=== PATIENT | female | born 1955 | race African-American/Black ===

== ENCOUNTER 2017-08-22 13:29 | Inpatient (IN) | payer OTHER ==
[2017-08-22 15:26] VITALS: BMI 43.7
--- NOTE | 2017-08-22 17:06 | HP ---
COWS - Scale Resting Pulse: 1= HI 81-100 Sweatin= Chills/Flushing Restless Observation: 3= Extraneous Movement Pupil Size: 0= Normal to Room Light Bone or Joint Aches: 2= Severe Diffuse Aches Runny Nose/ Eye Tearin= Runny Nose/Eyes GI Upset > 30mins: 1= Stomach Cramp Tremor Observation: 2= Slight Tremor Visible Yawning Observation: 1= 1-2x During Session Anxiety or Irritability: 2=Irritable/Anxious Goose Flesh Skin: 0=Smooth Skin COWS Score: 15 Admission [facility] - [facility] Chief Complaint: withdrawal sx Allergies/Adverse Reactions: Allergies Allergy/AdvReac Type Severity Reaction Status Date / Time No Known Allergies Allergy Verified 08/22/17 16:51 History of Present Illness: 61 years old female with long history of heroin nicotine cocaine dependence has hypertension, blood clots = legs, positive ppd, and depression is admitted to detox Exam Limitations: No Limitations - Ebola screening Have you traveled outside of the country in the last 21 days: No Have you had contact with anyone from an Ebola affected area: No Have you been sick,other than usual withdrawal symptoms: No Do you have a fever: No - Review of Systems Constitutional: Changes in sleep, Weight Stable EENT: reports: Blurred Vision (eye glasses), Dental Problems (multiple teeth missing) Respiratory: reports: No Symptoms reported Cardiac: reports: No Symptoms Reported GI: reports: Poor Fluid Intake, Indigestion, Abdominal cramping : reports: No Symptoms Reported Musculoskeletal: reports: Back Pain, Joint Pain, Muscle Pain, Muscle Weakness ( legs), Neck Pain Integumentary: reports: Bruising (related to blood thinner medication), Change in Color (both legs + arms) Neuro: reports: Tremors Endocrine: reports: No Symptoms Reported Hematology: reports: Blood Clots (legs), Easy Bruising (blood thinner inr pending) Psychiatric: reports: Judgement Intact, Orientated x3, Anxious, Depressed Other Systems: Reviewed and Negative Patient History - Patient Medical History Hx Anemia: No Hx Asthma: No Hx Chronic Obstructive Pulmonary Disease (COPD): No Hx Cancer: No Hx Cardiac Disorders: No Hx Congestive Heart Failure: No Hx Hypertension: Yes Hx Hypercholesterolemia: No Hx Pacemaker: No HX Cerebrovascular Accident: No Hx Seizures: No Hx Dementia: No Hx Diabetes: No Hx Gastrointestinal Disorders: No Hx Liver Disease: No Hx Genitourinary Disorders: No Hx Sexually Transmitted Disorders: No Hx Renal Disease (ESRD): No Hx Thyroid Disease: No Hx Human Immunodeficiency Virus (HIV): No Hx Hepatitis C: Yes Hx Depression: Yes Hx Suicide Attempt: No Hx Bipolar Disorder: No Hx Schizophrenia: No - Patient Surgical History Past Surgical History: Yes Hx Neurologic Surgery: Yes (2002 laminectomy) Hx Cataract Extraction: No Hx Cardiac Surgery: No Hx Lung Surgery: No Hx Breast Surgery: No Hx Breast Biopsy: No Hx Abdominal Surgery: Yes (2004 HYSTERECTOMY) Hx Appendectomy: No Hx Cholecystectomy: No Hx Genitourinary Surgery: No Hx Section: No Hx Orthopedic Surgery: Yes (LAMINECTOMY 2002) Hx Hysterectomy: Yes (1999) Other Surgical History: SKIN GRAPH 1984 Anesthesia Reaction: No - PPD History Previous Implant?: Yes Documented Results: Positive w/o proof Implanted On Prior [facility] Admission?: No PPD to be Administered?: No - Reproductive History Patient is a Female of Child Bearing Age (11 -55 yrs old): No Patient : No - Smoking Cessation Smoking history: Current every day smoker Have you smoked in the past 12 months: Yes Aproximately how many cigarettes per day: 10 Cigars Per Day: 0 Hx Chewing Tobacco Use: No Initiated information on smoking cessation: Yes 'Breaking Loose' booklet given: 08/22/17 - Substance & Tx. History Hx Alcohol Use: No Hx Substance Use: Yes Substance Use Type: Cocaine, Opiates Hx Substance Use Treatment: Yes (2008) - Substances Abused Heroin Route: Smoking Frequency: Daily Amount used: 15 BAGS Age of first use: 12 Date of Last Use: 08/22/17 Cocaine Route: Smoking Frequency: Daily Amount used: $60 Age of first use: 41 Date of Last Use: 08/22/17 Family Disease History - Family Disease History Family Disease History: Heart Disease: Mother (), Other: Father ( ), Mother, Brother (no brother), Sister (no sister) Other Family History: only child Admission Physical Exam S - Vital Signs Vital Signs: Vital Signs - 24 hr 08/22/17 15:24 Temperature 95.5 F L Pulse Rate 81 Respiratory 18 Rate Blood Pressure 143/110 - Physical General Appearance: Yes: Appropriately Dressed, Mild Distress, Obese, Tremorous , Irritable, Sweating, Anxious HEENTM: Yes: Hearing grossly Normal, Normal ENT Inspection, Normocephalic, Normal Voice Respiratory: Yes: Chest Non-Tender, Lungs Clear, Normal Breath Sounds, No Respiratory Distress, No Accessory Muscle Use Neck: Yes: Supple, Trachea in good position Breast: Yes: Breasts Symetrical Abdominal: Yes: Non Tender, Soft, Increased Bowel Sounds Genitourinary: Yes: Within Normal Limits Back: Yes: Normal Inspection, Surgical Scar Musculoskeletal: Yes: Gait Steady (walker), Back pain, Joint swelling (legs) Extremities: Yes: Non-Tender, Tremors Neurological: Yes: Fully Oriented, Alert, Motor Strength 5/5, Normal Response, Depressed Affect Integumentary: Yes: Warm, Track Guzman (last iv heroin 1988) Lymphatic: Yes: Within Normal Limits - Diagnostic (1) Opioid dependence with withdrawal Current Visit: Yes Status: Acute (2) Cocaine dependence, uncomplicated Current Visit: Yes Status: Chronic (3) Nicotine dependence Current Visit: Yes Status: Acute Qualifiers: Nicotine product type: cigarettes Substance use status: in withdrawal Qualified Code(s): F17.213 - Nicotine dependence, cigarettes, with withdrawal (4) Positive PPD, treated Current Visit: Yes Status: Resolved (5) Hypertension Current Visit: Yes Status: Chronic Qualifiers: Hypertension type: essential hypertension Qualified Code(s): I10 - Essential (primary) hypertension (6) Embolism involving vascular device Current Visit: Yes Status: Chronic Qualifiers: Encounter type: sequela Qualified Code(s): T82.818S - 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, implants and grafts, sequela Comment: last dose coumadin 08/22/17 patient has her own medication inr pending (7) GERD (gastroesophageal reflux disease) Current Visit: Yes Status: Chronic Qualifiers: Esophagitis presence: without esophagitis Qualified Code(s): K21.9 - Gastro -esophageal reflux disease without esophagitis (8) Hepatitis C Current Visit: Yes Status: Chronic Qualifiers: Viral hepatitis chronicity: unspecified Hepatic coma status: without hepatic coma Qualified Code(s): B19.20 - Unspecified viral hepatitis C without hepatic coma (9) Depression (emotion) Current Visit: Yes Status: Suspected Qualifiers: Depression Type: dysthymia Qualified Code(s): F34.1 - Dysthymic disorder Cleared for Admission [facility] - Detox or Rehab [facility] Level of Care: Medically Managed Detox Regimen/Protocol: Methadone BHS Breath Alcohol Content Breath Alcohol Content: 0 Urine Pregancy Test - Result Urine Test Results: Negative- NO Line Present Urine Drug Screen - Results Drug Screen Negative: No Urine Drug Screen Results: MARCO-Cocaine, OPI-Opiates, BZO-Benzodiazepines, MTD- Methadone
[2017-08-22] MEDS ORDERED: MAGNESIUM CITRATE 300 ML BOTTLE PO PRN (17:18)
[2017-08-22] MEDS ORDERED: ACETAMINOPHEN 325 MG TABLET (FP) PO PRN (17:18)
[2017-08-22] MEDS ORDERED: MAGNESIUM HYDROX 2400MG/30ML ORAL SUSPENSION 30 ML CUP PO PRN (17:18)
[2017-08-22] MEDS ORDERED: LOPERAMIDE HCL 2 MG CAPSULE PO PRN (17:18)
[2017-08-22] MEDS ORDERED: guaiFENesin/D-METHORPHAN HB 10 ML UNIT-DOSE CUPS PO PRN (17:18)
[2017-08-22] MEDS ORDERED: MAG HYDROX/AL HYDROX/SIMETH 30 ML UNIT-DOSE CUP PO PRN (17:18)
[2017-08-22] MEDS ORDERED: MENTHOL/PHENOL 1 EACH UD MM PRN (17:18)
[2017-08-22] MEDS ORDERED: P-EPHED 60MG/TRIPROLIDI 2.5MG TABLET PO PRN (17:18)
[2017-08-22] MEDS ORDERED: NICOTINE POLACRILEX 2 MG GUM BUC PRN (17:18)
[2017-08-22] MEDS ORDERED: METHADONE HCL 10 MG TABLET (FOR DETOX USE ONLY) PO ONE ×2 (18:00→23:00)
[2017-08-22] MEDS: diazePAM 5 MG TABLET PO PRN ×2 (18:40→22:49)
[2017-08-22] MEDS: BACITRACIN 0.9 GM PACKET TP SCH (18:41)
[2017-08-22] MEDS: THIAMINE HCL 100 MG TABLET (FP) PO SCH (22:49)
[2017-08-22] MEDS: RANITIDINE HCL 150 MG TABLET (FP) PO SCH (22:49)
[2017-08-23] MEDS: BACITRACIN 0.9 GM PACKET TP SCH ×4 (00:10→22:07)
[2017-08-23 02:19] LABS: URINE APPEARANCE SLCLOUDY; URINE BILIRUBIN NEGATIVE (NEGATIVE); URINE BLOOD NEGATIVE (NEGATIVE); URINE COLOR AMBER; URINE GLUCOSE (UA) NEGATIVE (NEGATIVE); URINE KETONE TRACE (NEGATIVE); URINE LEUK ESTERASE NEGATIVE (NEGATIVE); URINE NITRITE NEGATIVE (NEGATIVE); URINE PROTEIN NEGATIVE (NEGATIVE)
[2017-08-23] MEDS: diazePAM 5 MG TABLET PO PRN ×4 (02:56→20:27)
[2017-08-23 09:45] LABS: HEMATOCRIT 41.5 % (32.4-45.2); HEMOGLOBIN 13.4 GM/dL (10.7-15.3); MCH 30.7 pg (25.7-33.7); MCHC 32.2 g/dl (32.0-36.0); MEAN CELL VOLUME 95.3 fl (80-96); MEAN PLT VOLUME 8.5 fl (7.5-11.1); PLATELET COUNT 237 K/MM3 (134-434); RBC 4.36 M/mm3 (3.60-5.2); RDW 14.7 % (11.6-15.6); WHITE BLOOD COUNT 6.1 K/mm3 (4.0-10.0)
[2017-08-23] MEDS ORDERED: METHADONE HCL 10 MG TABLET (FOR DETOX USE ONLY) PO ONE (10:00)
[2017-08-23 10:03] LABS: CHLORIDE 108 mmol/L (98-107); POTASSIUM 4.1 mmol/L (3.5-5.1); SODIUM 138 mmol/L (136-145)
[2017-08-23 10:13] LABS: INR 2.65 (0.82-1.09)
[2017-08-23 10:21] LABS: ALBUMIN 2.8 g/dl (3.4-5.0); ALK PHOS 101 U/L (45-117); ANION GAP 8 (8-16); BILIRUBIN,TOTAL 0.4 mg/dL (0.2-1.0); BLOOD UREA NITROGEN 12 mg/dL (7-18); CALCIUM 7.8 mg/dL (8.5-10.1); CO2 22 mmol/L (21-32); CREATININE 0.9 mg/dL (0.55-1.02); GLUCOSE,RANDOM 143 mg/dL (74-106); SGOT/AST 47 U/L (15-37); SGPT/ALT 39 U/L (12-78); TOT PROT 8.2 g/dl (6.4-8.2)
[2017-08-23] MEDS: RANITIDINE HCL 150 MG TABLET (FP) PO SCH ×2 (10:44→22:07)
[2017-08-23] MEDS: PRENATAL VITAMINS W/ FOLIC ACID TABLET (FP) PO SCH (10:44)
[2017-08-23] MEDS: PATIENT'S OWN MEDICATION (NON-FORMULARY) (Amlodipine Besylate [Amlodipine Besylate] 10 MG) PO SCH (10:45)
[2017-08-23] MEDS: PATIENT'S OWN MEDICATION (NON-FORMULARY) (Lisinopril [Zestril] 40 MG) PO SCH (10:45)
[2017-08-23] MEDS: NICOTINE 14 MG/24 HOURS TOPICAL PATCH TD SCH (10:46)
[2017-08-23] MEDS ORDERED: hydrOXYzine HCL 25 MG TABLET (FP) PO PRN (11:54)
[2017-08-23] MEDS ORDERED: FLU VACCINE QUAD 60 MCG/0.5 ML (MDV 17-18) IM ONE (12:00)
--- NOTE | 2017-08-23 12:41 | CONSULT ---
[facility] Psychiatric Consult - Data Date of interview: 08/23/17 Admission source: [facility] Identifying data: Pt. is a 61 year old woman, single, mother of one and on disability. This is patient's [facility]. Pt. admitted to for alcohol, heroin, and crack dependence. Substance Abuse History: Heroin- First used: 12 Frequency: Daily Amount:1 1/ 2 bundle. Last used: 08/22/2017. Crack: First used: 43 Frequency: daily Amount: $60 Last used: 08/21. Cigarette: Current everyday smoker . 1/2 pack per day. Alcohol- Reports rarely drinking. 22oz beer Medical History: Hypertension, Hep C, Laminectomy (2002), Skin graph 2004 Psychiatric History: Pt. denies h/o psychiatric hospitalization. States she nearly had a suicide attempt at the age of 13 by planning on overdosing on her mother's medication but stated there was not enough pills so decided not to act upon her suicidal ideation. Pt. states she has not seen a psychiatrist in over two years. States she has been prescribed prozac, zoloft and trazodone but did not like how the medications made her feel. Pt. currently reports insomnia and is asking for a sleep aid. Ambien to be ordered. Physical/Sexual Abuse/Trauma History: Denies. Mental Status Exam - Mental Status Exam Alert and Oriented to: Time, Place, Person Cognitive Function: Good Patient Appearance: Unkempt Mood: Sad Affect: Mood Congruent Patient Behavior: Crying (Pt. sad about her current situation but stated she felt better after our conversation because someone was able to listen to her. ) , Cooperative Speech Pattern: Appropriate Voice Loudness: Normal Thought Process: Goal Oriented Thought Disorder: Not Present Hallucinations: Denies Suicidal Ideation: Denies Homicidal Ideation: Denies Insight/Judgement: Poor Sleep: Poorly Appetite: Fair Muscle strength/Tone: Normal Gait/Station: Normal Psychiatric Findings - Problem List ([place] 1, 2,3) (1) Opioid dependence with withdrawal Current Visit: Yes Status: Acute (2) Insomnia Current Visit: Yes Status: Acute (3) Cocaine dependence, uncomplicated Current Visit: Yes Status: Chronic (4) Nicotine dependence Current Visit: Yes Status: Chronic Qualifiers: Nicotine product type: cigarettes Substance use status: in withdrawal Qualified Code(s): F17.213 - Nicotine dependence, cigarettes, with withdrawal (5) Substance induced mood disorder Current Visit: No Status: Suspected - Initial Treatment Plan Initial Treatment Plan: Psychoeducation provided. Detoxification in progress. Ambien 5mg qhs PRN to be ordered for insomnia. Pt. reports favorable effect from previously taking ambien. Benefits and side effects (sleep walking) discussed. Verbal consent given. Will continue to monitor.
--- NOTE | 2017-08-23 16:43 | PN ---
BHS COWS - Scale Resting Pulse: 1= RI 81-100 Sweatin= Chills/Flushing Restless Observation: 3= Extraneous Movement Pupil Size: 0= Normal to Room Light Bone or Joint Aches: 2= Severe Diffuse Aches Runny Nose/ Eye Tearin= Runny Nose/Eyes GI Upset > 30mins: 1= Stomach Cramp Tremor Observation of Outstretched Hands: 2= Slight Tremor Visible Yawning Observation: 1= 1-2x During Session Anxiety or Irritability: 2=Irritable/Anxious Goose Flesh Skin: 0=Smooth Skin COWS Score: 15 BHS Progress Note (SOAP) Subjective: Chills, interrupted sleep, muscle spasm, tingling, anxious Objective: 08/23/17 16:40 Last Vital Signs Temp Pulse Resp BP Pulse Ox 97.9 F 82 18 115/73 08/23/17 14:57 08/23/17 14:57 08/23/17 14:57 08/23/17 14:57 Laboratory Tests 08/22/17 08/23/17 08/23/17 23:45 07:30 07:30 WBC 6.1 RBC 4.36 Hgb 13.4 Hct 41.5 MCV 95.3 MCH 30.7 MCHC 32.2 RDW 14.7 Plt Count 237 MPV 8.5 PT with INR INR Sodium 138 Potassium 4.1 Chloride 108 H Carbon Dioxide 22 Anion Gap 8 BUN 12 Creatinine 0.9 Creat Clearance w eGFR > 60 Random Glucose 143 H Calcium 7.8 L Total Bilirubin 0.4 AST 47 H ALT 39 Alkaline Phosphatase 101 Total Protein 8.2 Albumin 2.8 L Urine Color Amy Urine Appearance Slcloudy Urine pH 5.0 Ur Specific [place] 1.031 Urine Protein Negative Urine Glucose (UA) Negative Urine Ketones Trace H Urine Blood Negative Urine Nitrite Negative Urine Bilirubin Negative Urine Urobilinogen 2.0 H RPR Titer 08/23/17 08/23/17 07:30 07:30 WBC RBC Hgb Hct MCV MCH MCHC RDW Plt Count MPV PT with INR 30.00 H INR 2.65 H Sodium Potassium Chloride Carbon Dioxide Anion Gap BUN Creatinine Creat Clearance w eGFR Random Glucose Calcium Total Bilirubin AST ALT Alkaline Phosphatase Total Protein Albumin Urine Color Urine Appearance Urine pH Ur Specific [place] Urine Protein Urine Glucose (UA) Urine Ketones Urine Blood Urine Nitrite Urine Bilirubin Urine Urobilinogen RPR Titer Nonreactive Labs noted: serum glucose 143 Assessment: 08/23/17 16:41 Withdrawal symptoms Noted with hyperglycemia Plan: Continue detox Encouraged to drink lots of water for hydration Hyperglycemia: repeat fasting glucose in AM, send HbA1c, start finger stick ac meal with sliding scale insulin coverage, consider initiating oral antidiabetic medication if warranted
[2017-08-23] MEDS: INSULIN SLIDING SCALE (NOVOLOG) 1 VIAL SQ SCH (17:17)
[2017-08-23] MEDS: WARFARIN SODIUM 7.5 MG PO SCH (17:43)
[2017-08-23] MEDS ORDERED: ZOLPIDEM TARTRATE 5 MG TABLET PO PRN (22:00)
[2017-08-23] MEDS: THIAMINE HCL 100 MG TABLET (FP) PO SCH (22:07)
[2017-08-24] MEDS: diazePAM 5 MG TABLET PO PRN ×4 (01:17→15:19)
[2017-08-24] MEDS: BACITRACIN 0.9 GM PACKET TP SCH ×3 (06:05→22:07)
[2017-08-24] MEDS: INSULIN SLIDING SCALE (NOVOLOG) 1 VIAL SQ SCH ×3 (06:06→17:44)
[2017-08-24] MEDS ORDERED: METHADONE HCL 5 MG TABLET (FOR DETOX USE ONLY) PO ONE (10:00)
[2017-08-24] MEDS: PRENATAL VITAMINS W/ FOLIC ACID TABLET (FP) PO SCH (10:58)
[2017-08-24] MEDS: RANITIDINE HCL 150 MG TABLET (FP) PO SCH ×2 (10:58→22:07)
[2017-08-24] MEDS: PATIENT'S OWN MEDICATION (NON-FORMULARY) (Lisinopril [Zestril] 40 MG) PO SCH (10:59)
[2017-08-24] MEDS: PATIENT'S OWN MEDICATION (NON-FORMULARY) (Amlodipine Besylate [Amlodipine Besylate] 10 MG) PO SCH (10:59)
[2017-08-24] MEDS: NICOTINE 14 MG/24 HOURS TOPICAL PATCH TD SCH (11:00)
--- NOTE | 2017-08-24 11:32 | EKG ---
Test Reason : Blood Pressure : / mmHG Vent. Rate : 067 BPM Atrial Rate : 067 BPM P-R Int : 172 ms QRS Dur : 096 ms QT Int : 394 ms P-R-T Axes : 039 036 022 degrees QTc Int : 416 ms NORMAL SINUS RHYTHM NORMAL ECG NO PREVIOUS ECGS AVAILABLE BASELINE ARTIFACT Confirmed by CICI BANG, MONALISA ([id number]) on 08/24/2017 11:32:00 AM Referred By: AMELIA VERDIN Confirmed By:MONALISA BOLANOS MD
--- NOTE | 2017-08-24 12:31 | PN ---
BHS COWS - Scale Resting Pulse: 0= SD 80 or Below Sweatin=Flushed/Facial Moisture Restless Observation: 1= Difficult to Sit Still Pupil Size: 0= Normal to Room Light Bone or Joint Aches: 2= Severe Diffuse Aches Runny Nose/ Eye Tearin= Runny Nose/Eyes GI Upset > 30mins: 2= Nausea/Diarrhea Tremor Observation of Outstretched Hands: 2= Slight Tremor Visible Yawning Observation: 1= 1-2x During Session Anxiety or Irritability: 2=Irritable/Anxious Goose Flesh Skin: 0=Smooth Skin COWS Score: 14 BHS Progress Note (SOAP) Subjective: Restless,agitated,sweating,anxiety,tremors,interrupted sleep. Pt. is refusing BKM tid Objective: 08/24/17 12:26 Vital Signs 08/24/17 08/24/17 06:00 10:00 Temperature 98.1 F 98.1 F Pulse Rate 77 75 Respiratory 18 20 Rate Blood Pressure 102/80 106/69 Laboratory Tests 08/22/17 08/23/17 08/23/17 23:45 07:30 07:30 WBC 6.1 RBC 4.36 Hgb 13.4 Hct 41.5 MCV 95.3 MCH 30.7 MCHC 32.2 RDW 14.7 Plt Count 237 MPV 8.5 PT with INR INR Sodium 138 Potassium 4.1 Chloride 108 H Carbon Dioxide 22 Anion Gap 8 BUN 12 Creatinine 0.9 Creat Clearance w eGFR > 60 POC Glucometer Random Glucose 143 H Fasting Glucose Hemoglobin A1c % Calcium 7.8 L Total Bilirubin 0.4 AST 47 H ALT 39 Alkaline Phosphatase 101 Total Protein 8.2 Albumin 2.8 L Urine Color Amy Urine Appearance Slcloudy Urine pH 5.0 Ur Specific [place] 1.031 Urine Protein Negative Urine Glucose (UA) Negative Urine Ketones Trace H Urine Blood Negative Urine Nitrite Negative Urine Bilirubin Negative Urine Urobilinogen 2.0 H Ur Leukocyte Esterase Negative RPR Titer 08/23/17 08/23/17 08/23/17 07:30 07:30 17:06 WBC RBC Hgb Hct MCV MCH MCHC RDW Plt Count MPV PT with INR 30.00 H INR 2.65 H Sodium Potassium Chloride Carbon Dioxide Anion Gap BUN Creatinine Creat Clearance w eGFR POC Glucometer 76 Random Glucose Fasting Glucose Hemoglobin A1c % Calcium Total Bilirubin AST ALT Alkaline Phosphatase Total Protein Albumin Urine Color Urine Appearance Urine pH Ur Specific [place] Urine Protein Urine Glucose (UA) Urine Ketones Urine Blood Urine Nitrite Urine Bilirubin Urine Urobilinogen Ur Leukocyte Esterase RPR Titer Nonreactive 08/24/17 08/24/17 08/24/17 06:03 08:00 08:00 WBC RBC Hgb Hct MCV MCH MCHC RDW Plt Count MPV PT with INR INR Sodium Potassium Chloride Carbon Dioxide Anion Gap BUN Creatinine Creat Clearance w eGFR POC Glucometer 95 Random Glucose Fasting Glucose 129 H Hemoglobin A1c % 6.4 H Calcium Total Bilirubin AST ALT Alkaline Phosphatase Total Protein Albumin Urine Color Urine Appearance Urine pH Ur Specific [place] Urine Protein Urine Glucose (UA) Urine Ketones Urine Blood Urine Nitrite Urine Bilirubin Urine Urobilinogen Ur Leukocyte Esterase RPR Titer labs noted, pt. knows she has hyperglycemia, pre-diabetic condition. Assessment: 08/24/17 12:31 Withdrawal sx. Plan: continue detox
[2017-08-24] MEDS: WARFARIN SODIUM 7.5 MG PO SCH (18:02)
[2017-08-24] MEDS: THIAMINE HCL 100 MG TABLET (FP) PO SCH (22:07)
[2017-08-24] MEDS: ZOLPIDEM TARTRATE 10 MG TABLET (PARK CARE ONLY) PO PRN (22:09)
[2017-08-25] MEDS: diazePAM 5 MG TABLET PO PRN ×3 (02:57→13:43)
[2017-08-25] MEDS: BACITRACIN 0.9 GM PACKET TP SCH ×3 (07:11→22:14)
[2017-08-25] MEDS: INSULIN SLIDING SCALE (NOVOLOG) 1 VIAL SQ SCH ×2 (07:11→16:58)
[2017-08-25] MEDS ORDERED: METHADONE HCL 5 MG TABLET (FOR DETOX USE ONLY) PO ONE (10:00)
[2017-08-25] MEDS: PRENATAL VITAMINS W/ FOLIC ACID TABLET (FP) PO SCH (10:42)
[2017-08-25] MEDS: RANITIDINE HCL 150 MG TABLET (FP) PO SCH ×2 (10:43→22:15)
[2017-08-25] MEDS: PATIENT'S OWN MEDICATION (NON-FORMULARY) (Lisinopril [Zestril] 40 MG) PO SCH (10:43)
[2017-08-25] MEDS: NICOTINE 14 MG/24 HOURS TOPICAL PATCH TD SCH (10:43)
[2017-08-25] MEDS: PATIENT'S OWN MEDICATION (NON-FORMULARY) (Amlodipine Besylate [Amlodipine Besylate] 10 MG) PO SCH (10:43)
--- NOTE | 2017-08-25 12:04 | PN ---
BHS Progress Note (SOAP) Subjective: withdrawal sx Objective: 08/25/17 12:02 Vital Signs Temperature 97.9 F 08/25/17 10:00 Pulse Rate 92 H 08/25/17 10:00 Respiratory Rate 18 08/25/17 10:00 Blood Pressure 125/75 08/25/17 10:00 O2 Sat by Pulse Oximetry (%) Laboratory Last Values WBC 6.1 K/mm3 (4.0-10.0) 08/23/17 07:30 RBC 4.36 M/mm3 (3.60-5.2) 08/23/17 07:30 Hgb 13.4 GM/dL (10.7-15.3) 08/23/17 07:30 Hct 41.5 % (32.4-45.2) 08/23/17 07:30 MCV 95.3 fl (80-96) 08/23/17 07:30 MCH 30.7 pg (25.7-33.7) 08/23/17 07:30 MCHC 32.2 g/dl (32.0-36.0) 08/23/17 07:30 RDW 14.7 % (11.6-15.6) 08/23/17 07:30 Plt Count 237 K/MM3 (134-434) 08/23/17 07:30 MPV 8.5 fl (7.5-11.1) 08/23/17 07:30 PT with INR 30.00 SEC (9.98-11.88) H 08/23/17 07:30 INR 2.65 (0.82-1.09) H 08/23/17 07:30 Sodium 138 mmol/L (136-145) 08/23/17 07:30 Potassium 4.1 mmol/L (3.5-5.1) 08/23/17 07:30 Chloride 108 mmol/L (98-107) H 08/23/17 07:30 Carbon Dioxide 22 mmol/L (21-32) 08/23/17 07:30 Anion Gap 8 (8-16) 08/23/17 07:30 BUN 12 mg/dL (7-18) 08/23/17 07:30 Creatinine 0.9 mg/dL (0.55-1.02) 08/23/17 07:30 Creat Clearance w eGFR > 60 (>60) 08/23/17 07:30 POC Glucometer 110 UNITS (80-120) 08/24/17 16:44 Random Glucose 143 mg/dL (74-106) H 08/23/17 07:30 Fasting Glucose 129 mg/dL (70-105) H 08/24/17 08:00 Hemoglobin A1c % 6.4 % (4.8-6.0) H 08/24/17 08:00 Calcium 7.8 mg/dL (8.5-10.1) L 08/23/17 07:30 Total Bilirubin 0.4 mg/dL (0.2-1.0) 08/23/17 07:30 AST 47 U/L (15-37) H 08/23/17 07:30 ALT 39 U/L (12-78) 08/23/17 07:30 Alkaline Phosphatase 101 U/L (45-117) 08/23/17 07:30 Total Protein 8.2 g/dl (6.4-8.2) 08/23/17 07:30 Albumin 2.8 g/dl (3.4-5.0) L 08/23/17 07:30 Urine Color Amy 08/22/17 23:45 Urine Appearance Slcloudy 08/22/17 23:45 Urine pH 5.0 (5.0-8.0) 08/22/17 23:45 Ur Specific [place] 1.031 (1.001-1.035) 08/22/17 23:45 Urine Protein Negative (NEGATIVE) 08/22/17 23:45 Urine Glucose (UA) Negative (NEGATIVE) 08/22/17 23:45 Urine Ketones Trace (NEGATIVE) H 08/22/17 23:45 Urine Blood Negative (NEGATIVE) 08/22/17 23:45 Urine Nitrite Negative (NEGATIVE) 08/22/17 23:45 Urine Bilirubin Negative (NEGATIVE) 08/22/17 23:45 Urine Urobilinogen 2.0 mg/dL (0.2-1.0) H 08/22/17 23:45 Ur Leukocyte Esterase Negative (NEGATIVE) 08/22/17 23:45 RPR Titer Nonreactive (NONREACTIVE) 08/23/17 07:30 labs noted Assessment: 08/25/17 12:03 withdrawal sx No acute distress noted Plan: continue detox [place]
[2017-08-25] MEDS: WARFARIN SODIUM 7.5 MG PO SCH (17:34)
[2017-08-25] MEDS: ZOLPIDEM TARTRATE 10 MG TABLET (PARK CARE ONLY) PO PRN (22:14)
[2017-08-25] MEDS: THIAMINE HCL 100 MG TABLET (FP) PO SCH (22:44)
[2017-08-26] MEDS: BACITRACIN 0.9 GM PACKET TP SCH ×3 (05:44→22:43)
[2017-08-26] MEDS: INSULIN SLIDING SCALE (NOVOLOG) 1 VIAL SQ SCH ×2 (07:32→16:44)
[2017-08-26] MEDS ORDERED: METHADONE HCL 10 MG TABLET (FOR DETOX USE ONLY) PO ONE (10:00)
[2017-08-26] MEDS: PRENATAL VITAMINS W/ FOLIC ACID TABLET (FP) PO SCH (10:46)
[2017-08-26] MEDS: RANITIDINE HCL 150 MG TABLET (FP) PO SCH ×2 (10:46→22:44)
[2017-08-26] MEDS: PATIENT'S OWN MEDICATION (NON-FORMULARY) (Lisinopril [Zestril] 40 MG) PO SCH (10:46)
[2017-08-26] MEDS: PATIENT'S OWN MEDICATION (NON-FORMULARY) (Amlodipine Besylate [Amlodipine Besylate] 10 MG) PO SCH (10:47)
[2017-08-26] MEDS: NICOTINE 14 MG/24 HOURS TOPICAL PATCH TD SCH (10:49)
[2017-08-26 12:11] LABS: INR 2.06 (0.82-1.09); PROTHROMBIN TIME (PATIENT) 23.3 SEC (9.98-11.88)
--- NOTE | 2017-08-26 12:49 | PN ---
S Progress Note (SOAP) Subjective: ALERT,IRRITABLE,ANXIOUS,INTERRUPTED SLEEP,PAIN IN THE BODY Objective: 08/26/17 12:48 Vital Signs Temperature 97.9 F 08/26/17 10:00 Pulse Rate 86 08/26/17 10:00 Respiratory Rate 20 08/26/17 10:00 Blood Pressure 145/73 08/26/17 10:00 O2 Sat by Pulse Oximetry (%) 08/26/17 12:48 Abnormal Lab Results 08/26/17 07:50 PT with INR 23.30 H INR 2.06 H Assessment: 08/26/17 12:48 WITHDRAWAL SYMPTOM Plan: CONTINUE DETOX,DISCHARGE IN AM
[2017-08-26] MEDS: WARFARIN SODIUM 7.5 MG PO SCH (18:53)
[2017-08-26] MEDS ORDERED: ONDANSETRON *ODT* 4 MG TABLET SL ONE (19:59)
--- NOTE | 2017-08-26 21:35 | PN ---
[facility] Progress Note Note: c/o diarrhea, vomiting, dizziness, o alert unsteady gait, ambulating with walker, bp 97/62 ap 93, unable to tolerate oral fluid, watery stool, patient is taking coumadin 7.5 inr 2.06 a rule out gastritis P patient taking coumadin with high risk of fall ambulance was called report giving to er
[2017-08-26] MEDS: THIAMINE HCL 100 MG TABLET (FP) PO SCH (22:44)
[2017-08-26 23:13] VITALS: PULSE 93; TEMP 97.9
[2017-08-27] MEDS: ZOLPIDEM TARTRATE 10 MG TABLET (PARK CARE ONLY) PO PRN (00:49)
[2017-08-27] MEDS ORDERED: TRIMETHOBENZAMIDE HCL 200MG/2ML INJ IM ONE (05:47)
[2017-08-27] MEDS ORDERED: METHADONE HCL 5 MG TABLET (FOR DETOX USE ONLY) PO ONE (06:00)
[2017-08-27 06:01] VITALS: BP 119/62
[2017-08-27] MEDS: INSULIN SLIDING SCALE (NOVOLOG) 1 VIAL SQ SCH (07:46)
[2017-08-27] MEDS: BACITRACIN 0.9 GM PACKET TP SCH (07:46)
[2017-08-27] MEDS ORDERED: TRIMETHOBENZAMIDE HCL 300 MG CAPSULE PO ONE (09:17)
--- NOTE | 2017-08-27 09:40 | DS ---
[facility] Detox Discharge Summary Admission Date: 08/22/17 Discharge Date: 08/27/17 - History Present History: Alcohol Dependence, Cannabis Dependence - Physical Exam Results Vital Signs: Vital Signs Temperature 97.9 F 08/27/17 06:00 Pulse Rate 93 H 08/27/17 06:00 Respiratory Rate 20 08/27/17 06:00 Blood Pressure 119/62 08/27/17 06:00 O2 Sat by Pulse Oximetry (%) - Treatment Hospital Course: Detox Protocol Followed, Detoxed Safely, Responded well, Discharged Condition Good, Rehab Referral Accepted - Medication Discharge Medications: Ambulatory Orders Amlodipine Besylate 10 mg PO DAILY 08/22/17 Lisinopril [Zestril] 40 mg PO DAILY 08/22/17 Warfarin Sodium [Coumadin] 7.5 mg PO DAILY 08/22/17 - Diagnosis (1) Hyperglycemia Current Visit: Yes Status: Acute (2) Insomnia Current Visit: Yes Status: Acute (3) Opioid dependence with withdrawal Current Visit: Yes Status: Chronic (4) Cocaine dependence, uncomplicated Current Visit: Yes Status: Chronic (5) Depression (emotion) Current Visit: Yes Status: Chronic Qualifiers: Depression Type: dysthymia Qualified Code(s): F34.1 - Dysthymic disorder (6) Embolism involving vascular device Current Visit: Yes Status: Chronic Qualifiers: Encounter type: sequela Qualified Code(s): T82.818S - 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, implants and grafts, sequela (7) GERD (gastroesophageal reflux disease) Current Visit: Yes Status: Chronic Qualifiers: Esophagitis presence: without esophagitis Qualified Code(s): K21.9 - Gastro -esophageal reflux disease without esophagitis (8) Hepatitis C Current Visit: Yes Status: Chronic Qualifiers: Viral hepatitis chronicity: unspecified Hepatic coma status: without hepatic coma Qualified Code(s): B19.20 - Unspecified viral hepatitis C without hepatic coma (9) Hypertension Current Visit: Yes Status: Chronic Qualifiers: Hypertension type: essential hypertension Qualified Code(s): I10 - Essential (primary) hypertension (10) Nicotine dependence Current Visit: Yes Status: Chronic Qualifiers: Nicotine product type: cigarettes Substance use status: in withdrawal Qualified Code(s): F17.213 - Nicotine dependence, cigarettes, with withdrawal (11) Positive PPD, treated Current Visit: Yes Status: Chronic (12) Substance induced mood disorder Current Visit: No Status: Suspected - AMA Did Patient Leave Against Medical Advice: No
== END 2017-08-27 09:30 | disposition home or self-care (01) | DRG 897 ==
LOC: YASAS 13:29 → Y6N 17:45
PROVIDERS: ADMIT Internal Medicine; ATTEND Internal Medicine
PROC: HZ2ZZZZ Detoxification Services for Substance Abuse Treatment (ICD-10-PCS; principal; 2017-08-22)
DX: F19.230 Other psychoactive substance dependence with withdrawal, uncomplicated (principal); F14.20 Cocaine dependence, uncomplicated; Z68.41 Body mass index [BMI] 40.0-44.9, adult; F11.23 Opioid dependence with withdrawal; F17.213 Nicotine dependence, cigarettes, with withdrawal; F34.1 Dysthymic disorder; F19.24 Other psychoactive substance dependence with psychoactive substance-induced mood disorder; I10 Essential (primary) hypertension; G47.00 Insomnia, unspecified; T82.8 Other specified complications of cardiac and vascular prosthetic devices, implants and grafts; X58.XXXS Exposure to other specified factors, sequela; K21.9 Gastro-esophageal reflux disease without esophagitis; B19.20 Unspecified viral hepatitis C without hepatic coma; E66.9 Obesity, unspecified; R76.11 Nonspecific reaction to tuberculin skin test without active tuberculosis; R73.9 Hyperglycemia, unspecified; R73.03 Prediabetes; R19.7 Diarrhea, unspecified; R11.10 Vomiting, unspecified; R42 Dizziness and giddiness; Z79.01 Long term (current) use of anticoagulants
CPT/HCPCS: 36415; 71020-TC; 80053; 81003; 82947; 83036; 85027; 85610; 86593; 93005; 93010